=== PATIENT | male | born 1955 | race Caucasian/White ===

== ENCOUNTER 2024-08-30 14:01 | Emergency (ER) | payer MEDICARE, SELFPAY ==
[2024-08-30] VITALS (7 sets, daily range): BP systolic 117–160; BP diastolic 62–80; PULSE 73–82; RESP 18; TEMP 37.1; O2SAT 94–97; BMI 26.4
[2024-08-30] MEDS: LIDOCAINE 2% (GLYDO) 6 ML GEL TOP (14:43)
[2024-08-30 15:57] LABS: Culture Indicated Urine Cult Not Indicated
--- NOTE | 2024-08-30 16:01 | DI.CT.S_ITS ---
PROCEDURE: CT KIDNEY URETER BLADDER (KUB) INDICATIONS: flank pain TECHNIQUE: Axial sections were acquired from the lung bases to the pubic symphysis. Coronal and sagittal reformats were performed. For radiation dose reduction, the following was used: automated exposure control, adjustment of mA and/or kV according to patient size. COMPARISON: None. FINDINGS: Image quality: Diagnostic. Lower Chest: Thickening at the lateral lingula suspected to represent scarring.. URINARY: Right Kidney: No stones or hydronephrosis. Right Ureter: No hydroureter. Left Kidney: No stones or hydronephrosis. Left Ureter: No hydroureter. Bladder: Collapsed with a Kahn catheter. There is subtle appearance pericystic stranding. Kahn catheter is present. ABDOMEN: Liver: No contour-deforming solid mass. Gallbladder: Questionable small punctate calcification within the lumen. No thickening. Biliary ducts: No biliary dilation. Pancreas: No ductal dilation. Spleen: Size is within normal limits. Adrenal Glands: No adrenal nodules. Stomach and Bowel: Normal colonic caliber, without significant wall thickening. Appendix is normal. Peritoneum: No abnormal intraperitoneal fluid. No free air. Ventral Wall: No hernia. Abdominal Nodes: No enlarged retroperitoneal or mesenteric lymph nodes. Vessels: Aorta and inferior vena cava are normal in size. PELVIS: Pelvic Organs: Prostate gland is markedly enlarged. Pelvic Nodes: Unremarkable. Miscellaneous: Bilateral fat containing inguinal hernias are seen. Bones: Unremarkable. IMPRESSION: No obstructing stones or hydronephrosis. Collapsed bladder secondary to Kahn catheter, limiting evaluation. Very minimal appearance pericystic stranding which may be related to inflammation. Dictated by: Katherin Garza M.D. on 08/30/2024 at 16:42 Approved by: Katherin Garza M.D. on 08/30/2024 at 16:44
[2024-08-30 16:16] LABS: Add Manual Diff / Slide Review NO; Hematocrit 38.8 % (41-53); Hemoglobin 13.7 g/dL (13.5-17.5); Lymphocytes Absolute Auto 600 /uL (1100-4500); Mean Corpuscular HGB Conc 35.2 % (30-36); Mean Corpuscular Hemoglobin 35.0 PG (26-34); Mean Corpuscular Volume 99.5 fL (80-100); Platelet Count 226 X10^3/uL (150-400)
[2024-08-30 16:27] LABS: Alanine Aminotransferase 44 IU/L (<50); Albumin 4.3 g/dL (3.5-5.0); Albumin Globulin Ratio 1.5 (1.0-2.8); Alkaline Phosphatase 61 U/L (38-126); Blood Urea Nitrogen 18 mg/dL (9-20); Calcium 9.1 mg/dL (8.4-10.2); Carbon Dioxide 23 mmol/L (22-32); Chloride 102 mmol/L (98-107); Estimated Glomerular Filt Rate > 60 mL/min (>60); Globulin 2.8 g/dL (1.7-4.1); Glucose 111 mg/dL (70-99); HEMOLYSIS < 15 (0-50); Potassium 3.9 mmol/L (3.4-5.1); Sodium 135 mmol/L (137-145); Total Protein 7.1 g/dL (6.3-8.2)
--- NOTE | 2024-08-30 17:21 | ED.MALEGU ---
HPI - Male Genitourinary General Chief complaint: Urogenital-Male Stated complaint: Hasn't urinated since yesterday Time Seen by Provider: 08/30/24 15:23 Source: patient Mode of arrival: Ambulatory History of Present Illness HPI Narrative: Patient does have history of BPH. He does have a urologist. Patient has had episodes of urinary retention without need a Kahn catheter in the past. He is on medication for BPH. Patient states unable to urinate since yesterday. Patient had 1.8 L of urine in the Kahn bag. Related Data Previous Rx's ?Medication ?Instructions ?Recorded cefdinir 300 mg capsule 300 mg PO BID #10 caps 08/30/24 Allergies Allergy/AdvReac Type Severity Reaction Status Date / Time No Known Drug Allergies Allergy Verified 08/30/24 14:26 Review of Systems Review of Systems Narrative: GENERAL: Negative chills, fatigue, malaise, fever, sweats. HEENT: Negative sinus pain, ear pain, sore throat RESPIRATORY: Negative dyspnea, cough CARDIOVASCULAR: Negative chest pain, palpitations GASTROINTESTINAL: Negative vomiting, nausea, abdominal pain : Negative dysuria, frequency, hematuria, positive retention MUSCULOSKELETAL: Negative muscle or bony pain SKIN: Negative rash, skin lesions NEUROLOGIC: Negative weakness, numbness ROS Unobtainable: All systems reviewed & are unremarkable except as noted in HPI and below Patient History Social History Smoking Status: Former smoker Smoking Status: Former smoker Exam Narrative Exam Narrative: GENERAL: in no distress, not toxic not dyspneic HEAD: Normocephalic. EYES: Pupils equal round ENT: Mucous membranes moist. NECK: Trachea midline. CARDIOVASCULAR: Regular rate and rhythm RESPIRATORY: Clear to auscultation. Breath sounds equal bilaterally. No wheezes, rales, or rhonchi. GASTROINTESTINAL: Abdomen soft, non-tender, no suprapubic tenderness. Patient already had Kahn catheter placed. EXTREMITIES: No gross deformities. BACK: No flank tenderness. NEURO: AOx4. Clear speech SKIN: Warm and dry PSYCH: Not anxious, is cooperative Initial Vital Signs Initial Vital Signs: Vital Signs Temperature 98.8 F 08/30/24 14:26 Pulse Rate 79 08/30/24 14:26 Respiratory Rate 18 08/30/24 14:26 Blood Pressure 160/80 H 08/30/24 14:26 Pulse Oximetry 97 08/30/24 14:26 Oxygen Delivery Method Room Air 08/30/24 14:26 Course Orders Ordered: Discontinued Medications Cefdinir (Cefdinir 300 Mg Capsule) 300 mg PO NOW ONE Stop: 08/30/24 17:47 Last Admin: 08/30/24 17:53 Dose: 300 mg Documented By: TESSA Lidocaine HCl (Lidocaine 2% (Glydo) 6 Ml Gel) 6 ml TOP NOW ONE Stop: 08/30/24 14:36 Last Admin: 08/30/24 14:43 Dose: 6 ml Documented By: TESSA Vital Signs Vital signs: Vital Signs - 8 hr 08/30/24 14:26 Temperature 98.8 F Pulse Rate 79 Respiratory Rate 18 Blood Pressure 160/80 H Pulse Oximetry 97 Oxygen Delivery Method Room Air MDM - Male Genitourinary Lab Data 08/30/24 15:57 08/30/24 15:57 Labs: Lab Results 08/30/24 08/30/24 Range/Units 15:35 15:57 WBC 9.0 (4.5-11.0) X10^3/uL RBC 3.90 L (4.5-5.9) X10^6/uL Hgb 13.7 (13.5-17.5) g/dL Hct 38.8 L (41-53) % MCV 99.5 (80-100) fL MCH 35.0 H (26-34) PG MCHC 35.2 (30-36) % RDW 13.8 (11.6-14.8) % Plt Count 226 (150-400) X10^3/uL Neut % (Auto) 83.1 H (50-75) % Lymph % (Auto) 7.1 L (25-40) % [place] % (Auto) 9.3 (3-14) % Eos % (Auto) 0.0 L (2-4) % Baso % (Auto) 0.5 (0-2) % Neut # (Auto) 7500 H (6378-3730) /uL Lymph # (Auto) 600 L (9761-4170) /uL Gonzales # (Auto) 800 (0-900) /uL Eos # (Auto) 0 (0-450) /uL Baso # (Auto) 0 (0-100) /uL Sodium 135 L (137-145) mmol/L Potassium 3.9 (3.4-5.1) mmol/L Chloride 102 (98-107) mmol/L Carbon Dioxide 23 (22-32) mmol/L BUN 18 (9-20) mg/dL Creatinine 0.70 (0.66-1.25) mg/dL Estimated GFR > 60 (>60) mL/min BUN/Creatinine Ratio 25.7 H (6-22) Glucose 111 H (70-99) mg/dL Calcium 9.1 (8.4-10.2) mg/dL Total Bilirubin 1.1 (0.2-1.3) mg/dL AST 44 (17-59) IU/L ALT 44 (<50) IU/L Alkaline Phosphatase 61 (38-126) U/L Total Protein 7.1 (6.3-8.2) g/dL Albumin 4.3 (3.5-5.0) g/dL Globulin 2.8 (1.7-4.1) g/dL Albumin/Globulin Ratio 1.5 (1.0-2.8) Urine RBC 1-5/hpf (0-5/HPF) Urine WBC 0-1/hpf (0-5/HPF) Ur Squamous Epith Cells 0-1 /hpf (0-5/HPF) Urine Bacteria None seen (None) Ur Culture Indicated? Cult not indicated Vol Urine Centrifuged 10ml (spun) Urine Dip Bedside Urine Glucose Negative Bedside Urine Bilirubin - Negative Bedside Urine Ketone - Negative Urine Specific [place] 1.015 Bedside Urine Occult Blood ++ Bedside Urine pH 6.0 Bedside Urine Protein - Negative Bedside Urine Urobilinogen - Negative Bedside Urine Nitrite - Negative Bedside Urine Leukocytes - Negative Esterase Imaging Data CT scan - abdomen/pelvis: Radiologist's Impression: [place] [id number] CT Scan Report Signed Patient: Parveen Stallings MR#: [id number] : 1955 Acct:[id number] Age/Sex: 68 / M Date of Service: 08/30/24 Loc: ED Accession Number: [id number] Procedure: CT kidney ureter bladder (KUB) Ordering Provider: Kiran Sims MD PROCEDURE: CT KIDNEY URETER BLADDER (KUB) INDICATIONS: flank pain TECHNIQUE: Axial sections were acquired from the lung bases to the pubic symphysis. Coronal and sagittal reformats were performed. For radiation dose reduction, the following was used: automated exposure control, adjustment of mA and/or kV according to patient size. COMPARISON: None. FINDINGS: Image quality: Diagnostic. Lower Chest: Thickening at the lateral lingula suspected to represent scarring.. URINARY: Right Kidney: No stones or hydronephrosis. Right Ureter: No hydroureter. Left Kidney: No stones or hydronephrosis. Left Ureter: No hydroureter. Bladder: Collapsed with a Kahn catheter. There is subtle appearance pericystic stranding. Kahn catheter is present. ABDOMEN: Liver: No contour-deforming solid mass. Gallbladder: Questionable small punctate calcification within the lumen. No thickening. Biliary ducts: No biliary dilation. Pancreas: No ductal dilation. Spleen: Size is within normal limits. Adrenal Glands: No adrenal nodules. Stomach and Bowel: Normal colonic caliber, without significant wall thickening. Appendix is normal. Peritoneum: No abnormal intraperitoneal fluid. No free air. Ventral Wall: No hernia. Abdominal Nodes: No enlarged retroperitoneal or mesenteric lymph nodes. Vessels: Aorta and inferior vena cava are normal in size. PELVIS: Pelvic Organs: Prostate gland is markedly enlarged. Pelvic Nodes: Unremarkable. Miscellaneous: Bilateral fat containing inguinal hernias are seen. Bones: Unremarkable. IMPRESSION: No obstructing stones or hydronephrosis. Collapsed bladder secondary to Kahn catheter, limiting evaluation. Very minimal appearance pericystic stranding which may be related to inflammation. Dictated by: Katherin Garza M.D. on 08/30/2024 at 16:42 Approved by: Katherin Garza M.D. on 08/30/2024 at 16:44 [facility] Narrative Medical decision making narrative: Patient does have history of BPH. He does have a urologist. Patient has had episodes of urinary retention without need a Kahn catheter in the past. He is on medication for BPH. Patient states unable to urinate since yesterday. Patient had 1.8 L of urine in the Kahn bag After history and exam, CBC CMP urinalysis CT abdomen pelvis [facility] Medical records reviewed: No recent visit for this complaint Differential considered: Includes but not limited to urinary retention BPH kidney stone Lab Test results independently reviewed as above. Pertinent findings: WBC 9.0 hemoglobin 13.7 sodium 135 potassium 3.9 BUN 18 creatinine 0.7 GFR greater than 60 urinalysis negative bacteria, negative nitrite negative leukocyte Imaging studies independently reviewed: CT abdomen pelvis no acute finding Consultations: None indicated at this time Re-evaluations: 5:54 p.m.. Patient doing well. Reviewed results with patient and . Patient has established urologist at [facility]. Patient is already on BPH medications. They do agree for prophylactic antibiotics. Return precautions reviewed. Kahn catheter care instructions provided by nurse. They desire discharge home. Discussion: Appropriate for discharge home. Exam is reassuring. Return precautions reviewed with patient. Patient feeling much better. He desires discharge home. Diagnosis: Urinary retention Discharge Plan Departure Patient Disposition: Home Clinical Impression: Acute retention of urine Instructions: How to Care for Your Kahn Catheter -- Male, DI for Urinary Retention in Men Activity Restrictions/Additional Instructions: Your CT scan imaging blood work and urinalysis are reassuring results. However antibiotics are used to prevent infection since you do have a Kahn catheter in place. Please do call your urologist on Tuesday after the long 3 day weekend to make appointment for re-evaluation and removal of the Kahn catheter. Keep well hydrated. Return if worse if any questions or concerns Prescriptions: New cefdinir 300 mg capsule 300 mg PO BID Qty: 10 0RF Stand Alone Forms: Patient Portal/API
[2024-08-30] MEDS: CEFDINIR 300 MG CAPSULE PO (17:53)
== END 2024-08-30 18:20 | disposition home or self-care (01) ==
PROVIDERS: Emergency Provider Emergency Medicine
DX: R33.8 Other retention of urine (principal)
CPT/HCPCS: 36415; 74176; 80053; 81003; 81015; 85025; 87086; 99284